=== PATIENT | male | born 1985 | race Caucasian/White ===

== ENCOUNTER 2018-12-28 12:56 | Emergency (ER) | payer OTHER, MEDICAID ==
[~2018-12-28] VITALS: Ht 175.3 cm; Wt 113.4 kg
[~2018-12-28 12:56] MED LIST: BACTRIM DS TAB1 EACH PO; HYDROCODONE-AP1 EAC6 PO; IBUPROFEN 800800 M1 PO; NAPROSYN500 MG PO; NOHOMEMEDICATIONS; NORCO 5-325 TA1 EACH PO; TRAMADOL 50 MG50 MG PO
[2018-12-28 13:29] LABS: ABSOLUTE BASOPHILS 0.1 thou/uL (0.0-0.2); ABSOLUTE EOSINOPHILS 0.2 thou/uL (0.0-0.7); ABSOLUTE LYMPHOCYTES 1.7 thou/uL (0.8-5.3); ABSOLUTE MONOCYTES 0.9 thou/uL (0.0-1.2); ABSOLUTE NEUTROPHILS 11.6 thou/uL (1.6-8.1); BASOPHILS 0.6 %; EOSINOPHILS 1.5 %; HEMATOCRIT 56.4 % (42.0-52.0); HEMOGLOBIN 19.6 gm/dL (14.0-18.0); MCH 30.7 pg (26.0-34.0); MCHC 34.8 g/dL (28.0-37.0); MCV 88.3 fL (80.0-100.0); MPV 9.8 fl. (7.2-11.1); NUCLEATED RBCS 0 /100WBC; PLATELET COUNT* 283 thou/uL (150-400); POLYS 79.9 %; RBC 6.39 mil/uL (4.50-6.00); RDW-CV 13.6 % (10.5-14.5); WBC 14.5 thou/uL (4.0-11.0)
[2018-12-28 13:45] LABS: ANION GAP 13 mmol/L (7-16); BUN 16 mg/dL (7-18); CALCIUM 9.3 mg/dL (8.5-10.1); CHLORIDE 104 mmol/L (98-107); CO2 19 mmol/L (21-32); CREATININE 1.1 mg/dL (0.6-1.3); GLUCOSE 146 mg/dL (70-99); POTASSIUM 4.2 mmol/L (3.5-5.1); SODIUM 136 mmol/L (136-145)
[2018-12-28 13:55] LABS: ALBUMIN 3.8 g/dL (3.4-5.0); ALKALINE PHOSPHATASE 109 U/L (46-116); LIPASE 262 U/L (73-393); SGOT 23 U/L (15-37); SGPT 38 U/L (30-65); TOTAL BILIRUBIN 0.4 mg/dL (<0.1-1.0); TOTAL PROTEIN 7.8 g/dL (6.4-8.2); TROPONIN-I LEVEL <0.06 ng/mL (<0.06)
[2018-12-28] MEDS ORDERED: ONDANSETRON HCL4 M2 PO (14:42)
[2018-12-28] MEDS ORDERED: PRILOSEC 20 MG20 MG PO (14:42)
[2018-12-28] MEDS ORDERED: BENTYL 20 MG TA20 M1 PO ×2 (14:42→15:09)
[2018-12-28] MEDS ORDERED: CARAFATE1 GM/10 ML PO (14:42)
[2018-12-28] MEDS ORDERED: PHENERGAN 25 MG25 M1 PO (15:09)
[2018-12-28] MEDS ORDERED: PROMS25 WY RECTAL (15:09)
[2018-12-28 15:36] VITALS: BP 149/86
--- NOTE | 2018-12-29 11:40 | EKG ---
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1985 Requested By: Tatiana Olsen Order Number: [id number] MD: Fred Rosado Measurements Intervals [place] Rate: 94 P: 46 OK: 142 QRS: 66 QRSD: 79 T: 52 QT: 325 QTc: 407 Interpretive Statements Sinus rhythm Minimal ST depression, inferior leads Baseline wander in lead(s) II,III,aVR,aVF Compared to ECG 02/28/2017 11:36:58 No significant changes Electronically Signed On 12-29-2018 11:40:05 CDT by Fred Rosado [email or web address] <ELECTRONICALLY SIGNED> By: Fred Rosado MD, [facility] 12/29/18 [id number] [id number] Fred oRsado MD, [facility] /EPI
== END 2018-12-28 15:38 | disposition home or self-care (01) ==
LOC: M.ERS 12:56
PROVIDERS: Nurse Practitioner Family
DX: K52.9 Noninfective gastroenteritis and colitis, unspecified (principal); Z87.11 Personal history of peptic ulcer disease; F17.210 Nicotine dependence, cigarettes, uncomplicated